=== PATIENT | male | born 1995 | race Caucasian/White ===

== ENCOUNTER 2022-09-04 13:58 | Emergency (ER) | payer SELFPAY ==
[2022-09-04 14:02] VITALS: BP 138/85; PULSE 105; RESP 20; TEMP 36.4; O2SAT 100
[2022-09-04 14:09] VITALS: TEMP 36.4
[2022-09-04 14:39] LABS: Basophils Absolute Auto 0.1 K/mm3 (0.0-0.1); Basophils Percent Auto 0.7 % (0.2-1.2); Eosinophils Absolute Auto 0.2 K/mm3 (0-0.3); Eosinophils Percent Auto 1.5 % (0-4.4); Hemoglobin 16.1 g/dL (14.0-18.0); Immature Granulocyte Absolute 0.09 K/mm3 (0.00-0.031); Immature Granulocyte Percent A 0.7 % (0-0.5); Lymphocytes Absolute Auto 1.98 K/mm3 (0.9-3.2); Lymphocytes Percent Auto 14.3 % (18.3-44.2); Mean Corpuscular HGB Conc 32.9 g/dl (32-36); Mean Corpuscular Hemoglobin 28.5 pg (26-34); Mean Corpuscular Volume 86.7 fl (80-100); Mean Platelet Volume 10.3 fl (7.4-10.4); Monocytes Percent Auto 7.2 % (2.6-8.5); Neutrophils Absolute Auto 10.5 K/mm3 (1.3-6.7); Neutrophils Percent Auto 75.6 % (45.5-73.1); Platelet Count Result 300 k/mm3 (150-375); Red Blood Count 5.65 M/mm3 (4.6-6.20); Red Cell Distribution Width 13.1 % (11.5-14.5); White Blood Count 13.8 K/mm3 (4.5-10.0)
[2022-09-04 14:49] LABS: Alanine Aminotransferase 186 U/L (6-50); Albumin Level 5.5 g/dL (3.5-5.1); Alkaline Phosphatase 137 U/L (38-126); Anion Gap 18 mmol/L (8-16); Aspartate Amino Transferase 87 U/L (17-59); Bilirubin,Total 1.1 mg/dL (0.2-1.3); Blood Urea Nitrogen 17 mg/dL (9-20); Calcium 10.9 mg/dL (8.4-10.2); Carbon Dioxide 19 mmol/L (22-30); Chloride 99 mmol/L (98-107); Creatine Kinase 200 U/L (55-170); Estimated CRCL calculation 74 ml/min; Estimated Glomerular Filt Rate 46; Glucose 124 mg/dL (65-110); Magnesium 1.9 mg/dL (1.6-2.3); Potassium 3.9 mmol/L (3.4-5.0); Sodium 136 mmol/L (137-145)
--- NOTE | 2022-09-04 16:04 | PC.NURSE ---
Patient did not answer page to go to a room
== END 2022-09-04 16:04 | disposition left against medical advice (07) ==
LOC: ANHED 16:24
PROVIDERS: Emergency Provider Preventive Medicine Aerospace Medicine
DX: R06.02 Shortness of breath (principal)
CPT/HCPCS: 36415; 80053; 82550; 83735; 85025; 99199

== ENCOUNTER 2022-09-04 16:40 | Emergency (ER) | payer OTHER, SELFPAY ==
[2022-09-04 16:51] VITALS: BP 165/96; PULSE 114; RESP 18; TEMP 37.1; O2SAT 99
--- NOTE | 2022-09-04 17:36 | ED.GENADULT ---
HPI - General Adult General Chief complaint: Unspecified Stated complaint: dehydration/sun stroke Source: patient, family and RN notes reviewed History of Present Illness HPI narrative: 26-year-old male presents to the [facility] clinic today complaining of possible heat exhaustion. Patient was seen and nurse in emergency department earlier today for the same complaint however left without being seen due to a prolonged wait time. 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 Patient states that today he developed muscle aches and cramps all over his body, shortness of breath and some fatigue. Patient stated that he has only urinated once today and states over the last 3 days urine has been really dark. Patient would say that his urine was almost brown. Patient denies any past medical history and denies taking any meds for any conditions. Patient did have labs drawn at [facility] earlier today however he did not know the results of them due to leaving before being seen. Patient requesting if he could just have a work note because he drank 2 liquid IVs in the ER waiting room and states that he feels better. Patient states that he is only having muscle cramps in his hands now and his shortness of breath has improved. Patient also states that he has a rash on his bilateral arms that he is unsure if it is from a heat rash or got something while he was working in attics. Patient denies any chest pain, nausea, vomiting, fever, chills. Lab work was reviewed that was performed at the emergency department that showed that he had a creatinine of 1.8 that was concerning for an acute kidney injury in any had a CK of 200 which could be early signs of rhabdomyolysis. Patient denies any current kidney disease are history of hypertension. Patient is tachycardic and hypertensive upon arrival to the [facility]. Review of Systems Review of Systems: CONSTITUTIONAL: Denies fever, chills, or sweats. EYES: Denies visual changes, redness, or discharge. ENT: Denies otalgia and sore throat CARDIOVASCULAR: Denies chest pain, palpitations, or edema. RESPIRATORY: Complains of some shortness of breath. GASTROINTESTINAL: Denies abdominal pain, nausea, vomiting, or diarrhea. GENITOURINARY: Denies dysuria or hematuria. SKIN: Positive for rash on bilateral arms. MUSCULOSKELETAL: Complains muscle aches and cramps to his bilateral hands. NEUROLOGIC: Denies headache, numbness, or weakness. Pertinent positives per HPI. PMFSH Comments At the time of my signature, I reviewed and agree with the nursing past medical, surgical, social, and family history. There is no relevant family history pertinent to the patient complaint. Exam Narrative: GENERAL: This is a well-nourished, well-developed patient, in no apparent distress. HEAD: normocephalic, atraumatic. EYES: Sclera clear/white. Vision is grossly intact. EARS: External ears normal, auditory canals clear and without drainage, TMs normal without perforation. Hearing grossly intact. NOSE: External nose normal with no obvious nasal discharge, nares without redness, no rhinorrhea. THROAT: Mucous membranes moist, posterior pharynx clear. NECK: Neck supple, non-tender without lymphadenopathy, masses or thyromegaly. CARDIOVASCULAR: Regular rate and rhythm without murmurs, gallops, or rubs. RESPIRATORY: Clear to auscultation. Breath sounds equal bilaterally. No wheezes, rales, or rhonchi. GASTROINTESTINAL: Abdomen soft, non-tender, nondistended. Bowel sounds are active. No hepato-splenomegaly, or palpable masses. No guarding. SKIN: Fine, erythemic papular rash to the patient's bilateral inner forearms. NEURO: awake, alert, and oriented to person, place and time. There were no obvious focal neurologic abnormalities. EXTREMITIES: No clubbing, cyanosis, or edema. No joint tenderness, effusion, or edema noted. BACK: Nontender without deformity or crepitus. N
== END 2022-09-04 17:25 | disposition short-term general hospital (02) ==
PROVIDERS: Emergency Provider Nurse Practitioner Family
DX: N17.9 Acute kidney failure, unspecified (principal)
CPT/HCPCS: 99212; G0463